=== PATIENT | female | born 1990 | race Caucasian/White ===

== ENCOUNTER 2024-10-26 07:23 | Outpatient (CLI) | payer BC, SELFPAY ==
--- NOTE | ~2024-10-26 | US_ITS ---
Limited Abdominal Sonogram: Real-time sonographic imaging of the right upper quadrant was performed. Clinical History: Fatty liver disease Findings: The liver appears mildly echogenic, with no evidence of mass lesion or bile duct dilatatio n. Main portal vein demonstrates normal direction of flow. The gallbladder is well distended, and edilson ears normal with no evidence of gallstone or wall thickening. The common bile duct measures 4 mm. Th e visualized pancreas, aorta, and IVC are unremarkable. Right kidney unremarkable. Impression: Probable mild fatty infiltration of liver. Reviewed, dictated and finalized at location M. Impression: Probable mild fatty infiltration of liver.
== END 2024-10-26 07:24 | disposition home or self-care (01) ==
PROVIDERS: PCP Family Medicine; Visit Provider Physician Assistant
DX: K76.0 Fatty (change of) liver, not elsewhere classified (principal)
CPT/HCPCS: 76705